=== PATIENT | female | born 1950 | race Two or more races ===

== ENCOUNTER 2019-07-31 10:53 | Emergency (ER) | payer MEDICARE, OTHER ==
[~2019-07-31] VITALS: Ht 170.2 cm; Wt 106.1 kg
--- NOTE | 2019-07-31 11:10 | NUR ---
PD AT BEDSIDE FOR INTERVIEW
--- NOTE | 2019-07-31 11:18 | NUR ---
WARD AT BEDSIDE ([facility]). UNIT# [id number].
[2019-07-31] MEDS ORDERED: IBUPROFEN 600 MG TABLET PO ONE ×2 (11:55→12:00)
[2019-07-31] MEDS ORDERED: DIAZEPAM 5 MG TABLET ONE (11:55)
[2019-07-31] MEDS ORDERED: DIAZEPAM 10 MG TABLET PO ONE (12:00)
--- NOTE | 2019-07-31 12:40 | NUR ---
Patient discharged to home in stable condition. Written and verbal after care instructions given. Patient verbalizes understanding of instruction.
[2019-07-31 13:06] VITALS: BP 132/75
== END 2019-07-31 13:06 | disposition home or self-care (01) ==
LOC: ER 10:55
DX: S16.1XXA Strain of muscle, fascia and tendon at neck level, initial encounter (principal); I10 Essential (primary) hypertension; E11.9 Type 2 diabetes mellitus without complications; Z88.0 Allergy status to penicillin; Z60.2 Problems related to living alone; V49.49XA Driver injured in collision with other motor vehicles in traffic accident, initial encounter; Y93.89 Activity, other specified; Y92.488 Other paved roadways as the place of occurrence of the external cause; Y99.8 Other external cause status